=== PATIENT | female | born 1990 | race African-American/Black ===

== ENCOUNTER 2019-01-02 19:59 | Emergency (ER) | payer OTHER, SELFPAY ==
--- NOTE | 2019-01-02 22:07 | RAD ---
LEFT SHOULDER THREE VIEWS: 01/02/19 HISTORY: Pain. COMPARISON: None. FINDINGS: Glenohumeral joint space is preserved. No fracture or dislocation. IMPRESSION: No fracture or dislocation. POS: [facility]
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
== END 2019-01-02 22:58 | disposition home or self-care (01) ==
LOC: ERS 19:59
DX: S16.1XXA Strain of muscle, fascia and tendon at neck level, initial encounter (principal); S46.912A Strain of unspecified muscle, fascia and tendon at shoulder and upper arm level, left arm, initial encounter; S39.012A Strain of muscle, fascia and tendon of lower back, initial encounter; V43.92XA Unspecified car occupant injured in collision with other type car in traffic accident, initial encounter
CPT/HCPCS: 72125